=== PATIENT | female | born 1995 | race Caucasian/White ===

== ENCOUNTER 2020-04-30 06:22 | Emergency (ER) | payer OTHER ==
[~2020-04-30] VITALS: Ht 154.9 cm; Wt 59.0 kg
[2020-04-30 06:50] VITALS: BP_SYST 113
[2020-04-30] MEDS ORDERED: IBUP-1969 PO (08:24)
[2020-04-30] MEDS ORDERED: PENI500T PO (08:24)
[2020-04-30] MEDS ORDERED: PRED20SO PO (08:24)
[2020-04-30 08:36] VITALS: BP_SYST 113
== END 2020-04-30 08:36 | disposition home or self-care (01) ==
LOC: SED 06:22
DX: J02.9 Acute pharyngitis, unspecified (principal)
CPT/HCPCS: 36415; 86403; 87081; 99283